=== PATIENT | female | born 1980 | race Caucasian/White ===

== ENCOUNTER 2018-12-19 19:38 | Emergency (ER) | payer OTHER ==
[~2018-12-19] VITALS: Ht 162.6 cm; Wt 67.1 kg
[~2018-12-19 19:38] MED LIST: LORA10TA68 PO
--- NOTE | 2018-12-19 19:51 | NUR ---
called for triage, in restroom.
--- NOTE | 2018-12-19 20:10 | NUR ---
PT PRESENTED TO THE ER WITH A C/O PELVIC PAIN AND HEAVY VAGINAL BLEEDING. PT'S LMP 11/27/18. PT IS [place] SPEAKING AND HAS A FAMILY MEMBER AT THE BEDSIDE.
--- NOTE | 2018-12-19 20:33 | NUR ---
PT REC'D A 20G IV TO THE LT HAND. PRIOR AUTHORIZATION NURSE IS AT THE BEDSIDE FOR BLOOD DRAW.
[2018-12-19 20:37] LABS: BASOPHILS # (AUTO) 0.1 /CMM (0.0-0.2); EOSINOPHILS % (AUTO) 1.5 % (0.0-6.0); HEMATOCRIT 40 % (33-45); HEMOGLOBIN 13.3 g/dL (11.5-14.8); LYMPHOCYTES # (AUTO) 2.4 /CMM (0.8-4.8); LYMPHOCYTES % (AUTO) 24.8 % (20.0-44.0); MEAN CORPUSCULAR HGB CONC 33 g/dl (31.0-36.0); MEAN CORPUSCULAR VOLUME 88 fL (82-100); MONOCYTES # (AUTO) 0.9 /CMM (0.1-1.30); MONOCYTES % (AUTO) 9.2 % (2.0-12.0); NEUTROPHILS # (AUTO) 6.2 /CMM (1.8-8.9); NEUTROPHILS % (AUTO) 63.5 % (43.0-81.0); PLATELET COUNT (AUTO) 350 /CMM (150-450); RED BLOOD CELL COUNT(AUTO) 4.58 MIL/uL (4.0-5.2); WHITE BLOOD COUNT (AUTO) 9.8 K/uL (4.3-11.0)
[2018-12-19 21:54] LABS: APPEARANCE,URINE Slightly Cloudy (CLEAR); BILIRUBIN,URINE Negative (NEGATIVE); BLOOD, URINE Moderate Ery/uL (NEGATIVE); COLOR,URINE Yellow (YELLOW); KETONES,URINE Negative (NEGATIVE); LEUKOCYTE ESTERASE ,URINE Negative (NEGATIVE); NITRITE, URINE Negative (NEGATIVE); PROTEIN,URINE Negative (NEGATIVE); UGLUCOSE Negative (NEGATIVE); UROBILINOGEN,URINE 0.2 EU/dL (0.2)
[2018-12-19 22:03] LABS: BACTERIA,URINE Few /HPF (None Seen); SQUAMOUS EPITHELIAL CELL,UR Few /HPF (None Seen); WBC,URINE 0-2 /HPF (0-3)
[2018-12-19] MEDS ORDERED: ACETAMINOPHEN ES 500 MG TABLET ONE (22:22)
[2018-12-19 22:27] VITALS: BP 141/93
[2018-12-19] MEDS ORDERED: ACETAMINOPHEN 325 MG TABLET PO ONE (22:30)
== END 2018-12-19 22:28 | disposition home or self-care (01) ==
LOC: ER 19:41
DX: N93.9 Abnormal uterine and vaginal bleeding, unspecified (principal); Z98.890 Other specified postprocedural states; Z91.013 Allergy to seafood
CPT/HCPCS: 36415; 76856; 81001; 84703; 85025; 86850; 99284; A4606; 81000-TC